=== PATIENT | male | born 1985 | race Caucasian/White ===

== ENCOUNTER 2018-11-09 14:37 | Emergency (ER) | payer MEDICAID ==
[~2018-11-09] VITALS: Ht 154.9 cm; Wt 64.1 kg
[2018-11-09 14:42] VITALS: Ht 154.9 cm; Wt 64.1 kg
[2018-11-09] MEDS ORDERED: SOD CHLORIDE 0.9% 1,000 ML IV STA (15:23)
[2018-11-09] MEDS ORDERED: THIAMINE 100 MG TAB PO ONE (15:30)
[2018-11-09] MEDS ORDERED: CHLORDIAZEPOXIDE 25 MG CAP PO ONE (15:30)
[2018-11-09] MEDS ORDERED: DEXTROSE 5%-0.45% NACL 500 ML BAG IV ONE (15:30)
[2018-11-09] MEDS ORDERED: LORAZEPAM 2 MG INJ IV ONE (15:30)
[2018-11-09] MEDS ORDERED: FOLIC ACID 1 MG TAB PO ONE (15:30)
--- NOTE | 2018-11-09 15:30 | ERD ---
ER Documentation Chief Complaint Chief Complaint dizziness, sever CORDOBA, shakiness X 6 hrs, on/off X 1 month HPI 33-year-old male. Over the past 3 months the patient has had 3 episodes where he feels anxious, tremulous, has headache and facial numbness and tingling. He states that he drinks alcohol at least 6 beers daily. His last drink was yesterday. He states when he stops drinking he feels like this. He denies any hematemesis or melena. The patient seems to be motivated to stop drinking. During the patient's encounter translation services were utilized Language: Maltese Source: Video ROS All systems reviewed and are negative except as per history of present illness. Medications Home Meds Active Scripts Chlordiazepoxide* (Chlordiazepoxide*) 25 Mg Capsule, 25 MG PO Q8 PRN for CONTROL WITHDRAWAL SYMPTOMS for 6 Days, CAP 50mg po bid x 2 days 25mg po bid x 2 days 25mg po daily x 2 days Prov:RYLAN ACOSTA MD 11/09/18 Allergies Allergies: Coded Allergies: No Known Allergy (Unverified , 11/09/18) Physical Exam Vitals Vital Signs Date Temp Pulse Resp B/P (MAP) Pulse Ox O2 O2 Flow FiO2 Time Delivery Rate 11/09/18 80 18 163/94 99 Room Air 16:05 (117) 11/09/18 99.3 92 18 196/112 98 14:42 (140) Physical Exam General: NAD, tremulousness Head: Normocephalic, atraumatic. Eyes: Pupils equally reactive, EOM intact ENT: Moist mucous membranes Neck: Supple, no lymphadenopathy Respiratory: Lungs clear bilaterally, no distress Cardiovascular: RRR, no murmurs, rubs, or gallops Abdominal: Soft, non-tender, non-distended, no peritoneal signs : Deferred MSK: No edema, no unilateral swelling, 5/5 strength Neurologic: Alert and oriented, moving all extremities, normal speech, no focal weakness, no cerebellar signs, resting tremor, no asterixis Skin: No rash Psych: Normal mood Result Diagram: 11/09/18 1530 11/09/18 1530 Results 24 hrs Laboratory Tests Test 11/09/18 15:30 White Blood Count 12.2 10^3/ul Red Blood Count 4.96 10^6/ul Hemoglobin 15.8 g/dl Hematocrit 45.2 % Mean Corpuscular Volume 91.1 fl Mean Corpuscular Hemoglobin 31.9 pg Mean Corpuscular Hemoglobin Concent 35.0 g/dl Red Cell Distribution Width 11.8 % Platelet Count 276 10^3/UL Mean Platelet Volume 10.0 fl Immature Granulocytes % 0.300 % Neutrophils % 79.3 % Lymphocytes % 15.4 % Monocytes % 4.6 % Eosinophils % 0.1 % Basophils % 0.3 % Nucleated Red Blood Cells % 0.0 /100WBC Immature Granulocytes # 0.040 10^3/ul Neutrophils # 9.7 10^3/ul Lymphocytes # 1.9 10^3/ul Monocytes # 0.6 10^3/ul Eosinophils # 0.0 10^3/ul Basophils # 0.0 10^3/ul Nucleated Red Blood Cells # 0.0 10^3/ul Sodium Level 139 mmol/L Potassium Level 4.3 mmol/L Chloride Level 97 mmol/L Carbon Dioxide Level 28 mmol/L Anion Gap 14 Blood Urea Nitrogen 9 mg/dl Creatinine 0.52 mg/dl Est Glomerular Filtrat Rate mL/min > 60 mL/min Glucose Level 119 mg/dl Calcium Level 10.2 mg/dl Total Bilirubin 1.5 mg/dl Direct Bilirubin 0.00 mg/dl Indirect Bilirubin 1.5 mg/dl Aspartate Amino Transf (AST/SGOT) 129 IU/L Alanine Aminotransferase (ALT/SGPT) 130 IU/L Alkaline Phosphatase 64 IU/L Total Protein 9.6 g/dl Albumin 5.1 g/dl Globulin 4.50 g/dl Albumin/Globulin Ratio 1.13 Current Medications Medications Dose Sig/Fabian Start Time Status Last (Trade) Ordered Route PRN Stop Time Admin Dose Reason Admin Sodium 1,000 ml @ Q1H STAT 11/09/18 DC 11/09/18 Chloride 1,000 mls/hr IV 15:23 11/09/18 15:36 16:22 Lorazepam 1 mg ONCE ONCE 11/09/18 DC 11/09/18 (Ativan) IV 15:30 11/09/18 15:36 15:31 Thiamine 100 mg ONCE ONCE 11/09/18 DC 11/09/18 HCl PO 15:30 11/09/18 15:43 (Vitamin B1) 15:31 Folic Acid 1 mg ONCE ONCE 11/09/18 DC 2/2/19 (Folic Acid) PO 15:30 11/09/18 15:43 15:31 500 ml ONCE ONCE 11/09/18 DC 11/09/18 Dextrose/Sodi IV 15:30 11/09/18 16:33 um Chloride 15:31 (D5-1/2ns) 50 mg ONCE ONCE 11/09/18 DC 11/09/18 Chlordiazepox PO 15:30 11/09/18 15:36 marilu 15:31 (Librium) Procedures/MDM EKG, MONITORS, & DIAGNOSTIC IMAGING: CT brain: No acute process per radiologist read LAB INTERPRETATION: * No evidence of severe dehydration MEDICAL DECISION MAKING: The patient presents with signs and symptoms consistent with mild to moderate alcohol withdrawal. The patient has an alcohol abuse history and was informed that he needs to seek help for this. The patient is motivated to stop drinking. And seems to be a decent Librium candidate. We discussed the risks of this medication as well as sensation if he starts drinking again. The patient does have a headache with low concern for intracranial process though the patient is at risk for subdural hematoma. CT of the brain appropriate. Patient will benefit from fluids, multivitamins and symptom control. Anticipate discharge. new car make ready worker consulted. ER COURSE: * IV fluids, dextrose solution, Ativan, thiamine and folic acid provided * The patient symptoms improved. The patient was given outpatient social work coordinator resources. He can be safely discharged. CONSULTATION: None DISPOSITION PLAN: The patient does not have an identifiable emergent medical condition that maine ants inpatient hospitalization at this time. The patient is deemed safe for discharge with outpatient follow-up. We discussed follow up with the patient's primary care doctor within 24 to 48 hours as needed. We also discussed return to the emergency room for worsening symptoms or worsening condition. Outpatient referral: professional services specialist Discharge Medications: Librium Departure Diagnosis: Primary Impression: Alcohol withdrawal Complication of substance-induced condition: uncomplicated Qualified Codes: F10.230 - Alcohol dependence with withdrawal, uncomplicated Additional Impression: Alcohol abuse Condition: RYLAN Wilkins MD Nov 09, 2018 15:30
--- NOTE | 2018-11-09 16:02 | NUR ---
SS Note: RUG SCRATCHER received page that pt needs substance abuse resources. Pt is a 33YO [place]an-speaking only male who presented to [facility] ER dizziness, shakiness, states he drinks at least 6 beers daily. His last drink was yesterday and states when he stops drinking he feels this way. RUG SCRATCHER presented to pt room. Pt was in process of going for CT scan. RUG SCRATCHER was in need of obtaining video translation service and only able to provide pt with [place] ETOH abuse resource before he left for scan. RUG SCRATCHER unable to return d/t lack of time - end of day restrictions. RUG SCRATCHER endorsed to MAHESH Callahan that ED may reconsult social work PRN if needed.
[2018-11-09] MEDS ORDERED: CHLO25CA9 PO (16:52)
[2018-11-09 16:58] VITALS: BP 153/89; PULSE 63; RESP 17
== END 2018-11-09 17:00 | disposition home or self-care (01) ==
LOC: E/R 14:37
DX: F10.230 Alcohol dependence with withdrawal, uncomplicated (principal); R40.2142 Coma scale, eyes open, spontaneous, at arrival to emergency department; R40.2252 Coma scale, best verbal response, oriented, at arrival to emergency department; R40.2362 Coma scale, best motor response, obeys commands, at arrival to emergency department
CPT/HCPCS: 36415; 70450; 80053; 85025; 96361; 96374; J2060; J7030; Z7502; Z7610

== ENCOUNTER 2018-12-15 13:29 | Emergency (ER) | payer MEDICAID ==
[~2018-12-15] VITALS: Wt 63.3 kg
[~2018-12-15 13:29] MED LIST: CHLO25CA9 PO
[2018-12-15] MEDS ORDERED: LORAZEPAM 1 MG TAB PO ONE (16:00)
--- NOTE | 2018-12-15 16:11 | ERD ---
ER Documentation Chief Complaint Chief Complaint SHAKING X3 DAYS, DIZZINESS, DENIES FEVER, DENIES DRUG/ETOH USE, NO CP HPI This is a 33-year-old male patient presents with complaint of headache, dizziness, hand shaking times 5 days. Was seen at this ER 1 month ago for the same and was drinking 6 beers a day at that time. States last alcohol use was 2 weeks ago. Denies other drug use. Denies chest pain, denies shortness of chicho ath, denies SI. No fevers or recent illness. States his headache is similar to migraine headaches he has had in the past. At some point he was prescribed medications for migraines when he was in [place]. States that his headaches start with seeing a white light in front of his eyes then turns into tension and squeezing behind his head, + photophobia, + phonophobia. Denies nausea. States his headaches are worse after he has been drinking alcohol. Patient does not smoke and he is not around other irritants. ROS All systems reviewed and are negative except as per history of present illness. Medications Home Meds Active Scripts Stonwpkgar-Ffkjsfsaauudz-Cbgsvcek* (Fioricet*) 50-300-40 Mg Capsule, 1 CAP PO Q4H PRN for HEADACHE for 5 Days, #10 CAP Prov:BREE GONZALEZ NP 12/15/18 Naproxen* (Naprosyn*) 500 Mg Tablet, 500 MG PO BID PRN for HEADACHE for 10 Days, #20 TAB Prov:BREE GONZALEZ NP 12/15/18 Chlordiazepoxide* (Chlordiazepoxide*) 25 Mg Capsule, 25 MG PO Q8 PRN for CONTROL WITHDRAWAL SYMPTOMS for 6 Days, CAP 50mg po bid x 2 days 25mg po bid x 2 days 25mg po daily x 2 days Prov:RYLAN ACOSTA MD 11/09/18 Allergies Allergies: Coded Allergies: No Known Allergy (Unverified , 11/09/18) PMhx/Soc History of Surgery: No Anesthesia Reaction: No Hx Neurological Disorder: No Hx Respiratory Disorders: No Hx Cardiac Disorders: No Hx Psychiatric Problems: No Hx Miscellaneous Medical Probl: No Hx Alcohol Use: Yes Hx Substance Use: No Hx Tobacco Use: No FmHx Family History: No diabetes, No coronary disease, No other Physical Exam Vitals Vital Signs Date Temp Pulse Resp B/P (MAP) Pulse Ox O2 O2 Flow FiO2 Time Delivery Rate 12/15/18 99.0 71 18 163/95 97 Room Air 18:28 (117) 12/15/18 98.1 92 17 173/106 99 13:33 (128) Physical Exam Const: No acute distress Head: Atraumatic Eyes: Normal Conjunctiva ENT: Normal External Ears, Nose and Mouth. Neck: Full range of motion. No meningismus. Resp: Clear to auscultation bilaterally Cardio: Regular rate and rhythm, no murmurs Abd: Soft, non tender, non distended. Normal bowel sounds Skin: No petechiae or rashes Back: No midline or flank tenderness Ext: No cyanosis, or edema Neur: Awake and alert Psych: Normal Mood and Affect Result Diagram: 12/15/18 1614 12/15/18 1614 Results 24 hrs Laboratory Tests Test 12/15/18 16:14 White Blood Count 9.9 10^3/ul Red Blood Count 4.62 10^6/ul Hemoglobin 14.8 g/dl Hematocrit 43.1 % Mean Corpuscular Volume 93.3 fl Mean Corpuscular Hemoglobin 32.0 pg Mean Corpuscular Hemoglobin Concent 34.3 g/dl Red Cell Distribution Width 12.2 % Platelet Count 221 10^3/UL Mean Platelet Volume 9.6 fl Immature Granulocytes % 0.300 % Neutrophils % 74.6 % Lymphocytes % 19.1 % Monocytes % 4.9 % Eosinophils % 0.6 % Basophils % 0.5 % Nucleated Red Blood Cells % 0.0 /100WBC Immature Granulocytes # 0.030 10^3/ul Neutrophils # 7.4 10^3/ul Lymphocytes # 1.9 10^3/ul Monocytes # 0.5 10^3/ul Eosinophils # 0.1 10^3/ul Basophils # 0.1 10^3/ul Nucleated Red Blood Cells # 0.0 10^3/ul Sodium Level 141 mmol/L Potassium Level 4.1 mmol/L Chloride Level 101 mmol/L Carbon Dioxide Level 26 mmol/L Anion Gap 14 Blood Urea Nitrogen 11 mg/dl Creatinine 0.65 mg/dl Est Glomerular Filtrat Rate mL/min > 60 mL/min Glucose Level 107 mg/dl Calcium Level 9.8 mg/dl Total Bilirubin 0.9 mg/dl Direct Bilirubin 0.00 mg/dl Indirect Bilirubin 0.9 mg/dl Aspartate Amino Transf (AST/SGOT) 95 IU/L Alanine Aminotransferase (ALT/SGPT) 167 IU/L Alkaline Phosphatase 50 IU/L Total Protein 8.8 g/dl Albumin 4.9 g/dl Globulin 3.90 g/dl Albumin/Globulin Ratio 1.25 Urine Opiates Screen Negative Urine Barbiturates Negative Urine Amphetamines Screen Negative Urine Benzodiazepines Screen Negative Urine Cocaine Screen Negative Urine Cannabinoids Negative Ethyl Alcohol Level < 10.0 mg/dl Current Medications Medications Dose Sig/Fabian Start Time Status Last (Trade) Ordered Route PRN Stop Time Admin Dose Reason Admin Lorazepam 1 mg ONCE ONCE 12/15/18 DC (Ativan) PO 16:00 12/15/18 16:05 Ketorolac 30 mg ONCE STAT 12/15/18 DC 12/15/18 Tromethamine IM 18:05 18:10 (Toradol) 12/15/18 18:06 Procedures/MDM EKG reviewed by Dr. Dee. EKG reveals normal sinus rhythm. No ectopy. practice director used to discuss lab results and plan of care. Patient states that he actually had his last alcoholic drink 5 days ago and stopped drinking alcohol because of his headache and tingling in his head. Through electrical lineman he denied use of any other substances. States his primary reason for presenting to the ER today was because of his headache pain. We discussed h is elevated blood pressure. He states he has a blood pressure cuff at home that he will monitor his blood pressure for chronically elevated blood pressure. I instructed him on use of migraine medications but importance of follow-up with primary care provider for assessment and future modifications to medications. We also discussed his potential need for blood pressure medication. His lab results also showed that he had elevated liver enzymes. I instructed him to abstain from alcohol as this may be elevating the enzymes and that he needs close follow-up with primary care doctor to continue to monitor. Through electrical lineman patient verbalized understanding of his current condition and need for close follow-up with primary care provider. Patient states he does not currently have a doctor. Community resources provided to patient at discharge. Through electrical lineman patient verbalized understanding of red flags and signs and symptoms of needing emergent medical treatment. This patients evaluation indicates a benign cause of headache very likely. The most serious possible causes of headache, including hemorrhage and infection have been excluded based upon todays assessment. The patient has nonetheless been warned to return immediately for worsening symptoms, change in pattern of current symptoms, or other acute problems. BREE GONZALEZ NP Dec 15, 2018 16:11
[2018-12-15] MEDS ORDERED: KETOROLAC 30 MG INJ IM STA (18:05)
[2018-12-15] MEDS ORDERED: NAPR-985 PO (18:12)
[2018-12-15] MEDS ORDERED: BUTA1CAP38 PO (18:14)
[2018-12-15 18:28] VITALS: BP 163/95; PULSE 71; RESP 18
== END 2018-12-15 18:34 | disposition home or self-care (01) ==
LOC: FTE 13:29
DX: R51 Headache (principal); R42 Dizziness and giddiness; R25.1 Tremor, unspecified
CPT/HCPCS: 80053; 80307; 85025; 93005; 96372; J1885; Z7502